=== PATIENT | female | born 1975 | race Caucasian/White ===

== ENCOUNTER 2016-12-05 16:37 | Emergency (ER) | payer BC, OTHER ==
[2016-12-05 16:59] VITALS: BP 144/72
--- NOTE | 2016-12-05 17:22 | UC ---
Skin Complaint HPI - HPI Summary HPI Summary: 41 yo female with multiple complaints cold sores x 2 days gi upset and nausea after getting a shot of toradol fungus right foot x weeks right knee pain- seen by orthopedist today for this complaint - History of Current Complaint Chief Complaint: UCGeneralIllness Time Seen by Provider: 12/05/16 17:01 Stated Complaint: UPSET STOMACH/COLD SORES/RIGHT LEG SWOLLEN Hx Obtained From: Patient Hx Last Menstrual Period: 11/30/16 Onset/Duration: Gradual Onset, Lasting Hours Timing: Constant Onset Severity: Mild Current Severity: Mild Pain Intensity: 3 Pain Scale Used: 0-10 Numeric Location: Other - upper lip Character: Swelling, Redness, Raised, Painful Aggravating: Nothing Alleviating: Nothing Associated Signs & Symptoms: Positive: Nausea - Allergy/Home Medications Allergies/Adverse Reactions: Allergies Allergy/AdvReac Type Severity Reaction Status Date / Time No Known Allergies Allergy Verified 12/05/16 16:59 Home Medications: Home Medications Cholecalciferol TAB* [Vitamin D TAB*] 1,000 unit PO BEDTIME 12/05/16 [History Confirmed 12/05/16] Escitalopram (NF) [Lexapro 10 mg (NF)] 10 mg PO BEDTIME 12/05/16 [History Confirmed 12/05/16] Losartan TAB* [Cozaar TAB*] 25 mg PO BEDTIME 12/05/16 [History Confirmed ] Review of Systems Constitutional: Negative Skin: Rash Eyes: Negative ENT: Negative Respiratory: Negative Cardiovascular: Negative Gastrointestinal: Abdominal Pain - with food, Nausea Genitourinary: Negative Motor: Negative Neurovascular: Negative Musculoskeletal: Negative Neurological: Negative Psychological: Negative All Other Systems Reviewed And Are Negative: Yes PMH/Surg Hx/FS Hx/Imm Hx Previously Healthy: Yes Cardiovascular History: Hypertension - Surgical History Surgical History: Yes Surgery Procedure, Year, and Place: 2 C-SECT. L KNEE SX. KIDNEY STENT/ NEPHROSTOMY TUBE. CHOLECYSTECTOMY. hernia - Family History Known Family History: Positive: None, Hypertension - Social History Alcohol Use: Rare Substance Use Type: None Smoking Status (MU): Never Smoked Tobacco Physical Exam Triage Information Reviewed: Yes Appearance: Well-Appearing, No Pain Distress, Well-Nourished Vital Signs: Initial Vital Signs Temp 98.4 F 12/05/16 16:49 Pulse 75 12/05/16 16:49 Resp 18 12/05/16 16:49 BP 144/72 12/05/16 16:49 Pulse Ox 98 12/05/16 16:49 Vital Signs Reviewed: Yes Eyes: Positive: Conjunctiva Clear ENT: Positive: Hearing grossly normal, TMs normal, Other:. Negative: Nasal congestion, Tonsillar exudate, Trismus, Muffled/hoarse voice Dental: Negative: Gross Decay/Caries @, Dental Fracture @, Abscess @ Neck: Positive: Supple, Nontender, No Lymphadenopathy Respiratory: Positive: Lungs clear, Normal breath sounds, No respiratory distress, No accessory muscle use Cardiovascular: Positive: RRR, No Murmur Abdomen Description: Positive: Nontender, Soft. Negative: CVA Tenderness (R), CVA Tenderness (L) Musculoskeletal: Positive: ROM Intact, Edema @ - mild right lower extr, tender medial joint line right knee Neurological: Positive: Alert Psychological Exam: Normal Skin Exam: Other - rash c/w herpes labialis tinea pedis right foot Course/Dx - Diagnoses Provider Diagnoses: herpes labialis. tinea pedis. gastritis Discharge - Discharge Plan Condition: Stable Disposition: HOME Prescriptions: Ondansetron TAB* [Zofran 4 MG Tab*] 4 mg PO Q6H PRN #10 tab PRN Reason: Nausea ValACYclovir (*) [Valtrex 1 GM(*)] 2 gm PO BID #4 tab Patient Education Materials: Gastritis (ED), Athlete's Foot (ED) Referrals: Glo Lopez MD [Primary Care Provider] - Additional Instructions: take valtrex for cold sores 2 pills every 12 hours (#4) [place] 30 ml (2 tablespoons) every 2 hours while awake for 2 days zofran for nausea soak right foot in epsom salts twice daily dry and apply lotrimen (otc) do this for 2 weeks
== END 2016-12-05 17:42 | disposition home or self-care (01) ==
LOC: UCCORT 16:37
DX: B00.1 Herpesviral vesicular dermatitis (principal); B35.3 Tinea pedis; K29.70 Gastritis, unspecified, without bleeding
CPT/HCPCS: 99212; G0463

== ENCOUNTER 2018-01-20 16:46 | Emergency (ER) | payer BC, OTHER ==
[2018-01-20 17:23] VITALS: BP 141/66
[2018-01-20] MEDS ORDERED: Tetan/Diph/Pertus SYR(Tdap)* 0.5 ML SYR(BOOSTRIX) use SYR IM ONE (17:32)
--- NOTE | 2018-01-20 17:38 | ED ---
Upper Extremity Pain - HPI Summary HPI Summary: 42 yr old female with the complaint of right hand injury. She hit her right middle finger when taking off a door. She complains of laceration to the back of the right proximal finger over the PIP area. This injury occurred at 1430 today. She does not know her last TD shot. No numbness to finger. - History of Current Complaint Chief Complaint: UCLaceration Stated Complaint: LACERATION RIGHT MIDDLE FINGER Time Seen by Provider: 01/20/18 17:23 Hx Last Menstrual Period: now - Allergies/Home Medications Allergies/Adverse Reactions: Allergies Allergy/AdvReac Type Severity Reaction Status Date / Time No Known Allergies Allergy Verified 12/05/16 16:59 PMH/Surg Hx/FS Hx/Imm Hx Cardiovascular History: Reports: Hx Hypertension - Surgical History Surgery Procedure, Year, and Place: 2 C-SECT; T and A. L KNEE SX; right knee [facility]. KIDNEY STENT/NEPHROSTOMY TUBE. CHOLECYSTECTOMY. hernia Infectious Disease History: No Infectious Disease History: Denies: Traveled Outside the [place] in Last 30 Days - Family History Known Family History: Positive: None, Hypertension - Social History Occupation: Employed Full-time Alcohol Use: Rare Substance Use Type: Reports: None Smoking Status (MU): Never Smoked Tobacco Review of Systems Constitutional: Negative Positive: Other - injury right middle finger All Other Systems Reviewed And Are Negative: Yes Physical Exam Triage Information Reviewed: Yes Vital Signs On Initial Exam: Initial Vitals Temp Pulse Resp BP Pulse Ox 98 F 98 20 141/66 100 01/20/18 17:13 01/20/18 17:13 01/20/18 17:13 01/20/18 17:13 01/20/18 17:13 Vital Signs Reviewed: Yes Appearance: Positive: Well-Appearing, No Pain Distress Skin: Positive: Warm, Skin Color Reflects Adequate Perfusion Head/Face: Positive: Normal Head/Face Inspection Eyes: Positive: Normal, EOMI ENT: Positive: Normal ENT inspection Neck: Positive: Nontender Respiratory/Lung Sounds: Positive: Other - normal effort Cardiovascular: Positive: Pulses are Symmetrical in both Upper and Lower Extremities - cap refill normal. Abdomen Description: Negative: Distended Musculoskeletal: Positive: Strength/ROM Intact, Other - tender over the right PIP area there is a superficial skin flap type laceration over the right 3rd digit PIP. Some mild tenderness. She has intact digital nerve sensation and flexor, extensor strenght. Neurological: Positive: Sensory/Motor Intact, Alert, Oriented to Person Place, Time, CN Intact II-III Psychiatric: Positive: Normal - [place] Coma Scale Best Eye Response: 4 - Spontaneous Best Motor Response: 6 - Obeys Commands Best Verbal Response: 5 - Oriented Coma Scale Total: 15 Procedures - Splinting Right 3rd Digit Location: right middle finger Pre-Made Type: metal Splint: volar - under right middle finger and tony taped to the index finger. Pre-Proc Neuro Vasc Exam: normal Post-Proc Neuro Vasc Exam: normal - Laceration/Wound Repair 1 Location: upper extremity Description: Linear Length, Depth and Shape: 1.5 cm skin flap over the right PIP dorsal middle right finger Betadine Prep?: No Irrigated w/ Saline (ccs): 300 Laceration/Wound Explored: clean Closure: SteriStrips Layer Closure?: No Sterile Dressing Applied?: Yes - badaide. Diagnostics - Vital Signs Vital Signs Temp Pulse Resp BP Pulse Ox 01/20/18 17:13 98 F 98 20 141/66 100 - Laboratory Lab Statement: Any lab studies that have been ordered have been reviewed, and results considered in the medical decision making process. - Radiology right middle finger Xray Interpretation: No Acute Changes Radiology Interpretation Completed By: Radiologist Course/Dx - Course Course Of Treatment: 42 yr old with laceration repair of the right middle finger. DC home. - Diagnoses Provider Diagnoses: Laceration of right middle finger Discharge - Sign-Out/Discharge Documenting (check all that apply): Patient Departure All imaging exams completed and their final reports reviewed: Yes - Discharge Plan Condition: Good Disposition: HOME Patient Education Materials: Finger Laceration (ED) Referrals: Bebe Costa MD [Primary Care Provider] - - Billing Disposition and Condition Condition: GOOD Disposition: Home
--- NOTE | 2018-01-20 17:49 | RAD ---
HISTORY: pain over the PIP COMPARISONS: None VIEWS: 3 , Frontal, lateral, and oblique views of the third digit of the left hand FINDINGS: BONE DENSITY: Normal. BONES: There is no displaced fracture. JOINTS: There is no arthropathy. ALIGNMENT: There is no dislocation. SOFT TISSUES: Unremarkable. OTHER FINDINGS: None. IMPRESSION: NO ACUTE OSSEOUS INJURY. IF SYMPTOMS PERSIST, RECOMMEND REPEAT IMAGING.
== END 2018-01-20 18:20 | disposition home or self-care (01) ==
LOC: UCCORT 16:46
DX: S61.212A Laceration without foreign body of right middle finger without damage to nail, initial encounter (principal); W22.09XA Striking against other stationary object, initial encounter; Y93.9 Activity, unspecified; Y92.9 Unspecified place or not applicable; Z23 Encounter for immunization
CPT/HCPCS: 12001; 73140; 90471; 90715; 99212; G0463

== ENCOUNTER 2018-03-21 14:27 | Emergency (ER) | payer BC, OTHER ==
[2018-03-21 14:56] VITALS: BP 126/77
--- NOTE | 2018-03-21 15:15 | ED ---
Throat Pain/Nasal Congestion - HPI Summary HPI Summary: 43 yr old with several days of sore throat, sinus pressure, post nasal drip, and now left ear pain. Symptoms are moderate. No fever. She has no SOB. - History of Current Complaint Chief Complaint: UCGeneralIllness Time Seen by Provider: 03/21/18 15:05 - Allergies/Home Medications Allergies/Adverse Reactions: Allergies Allergy/AdvReac Type Severity Reaction Status Date / Time No Known Allergies Allergy Verified 03/21/18 14:55 PMH/Surg Hx/FS Hx/Imm Hx Cardiovascular History: Reports: Hx Hypertension - Surgical History Surgery Procedure, Year, and Place: 2 C-SECT; T and A. L KNEE SX; right knee 2017 [facility]. KIDNEY STENT/NEPHROSTOMY TUBE. CHOLECYSTECTOMY. hernia Infectious Disease History: No Infectious Disease History: Denies: Traveled Outside the [place] in Last 30 Days - Family History Known Family History: Positive: None, Hypertension - Social History Occupation: Employed Full-time Alcohol Use: Rare Substance Use Type: Reports: None Smoking Status (MU): Never Smoked Tobacco Review of Systems Constitutional: Negative Positive: Sore Throat, Ear Ache, Nasal Discharge, Other - sinus pressure All Other Systems Reviewed And Are Negative: Yes Physical Exam Triage Information Reviewed: Yes Vital Signs On Initial Exam: Initial Vitals Temp Pulse Resp BP Pulse Ox 98.1 F 63 18 126/77 100 03/21/18 14:51 03/21/18 14:51 03/21/18 14:51 03/21/18 14:51 03/21/18 14:51 Vital Signs Reviewed: Yes Appearance: Positive: Well-Appearing, No Pain Distress Skin: Positive: Warm, Skin Color Reflects Adequate Perfusion Head/Face: Positive: Normal Head/Face Inspection Eyes: Positive: EOMI ENT: Positive: Pharynx normal, TMs normal, Sinus tenderness Neck: Positive: Nontender Respiratory/Lung Sounds: Positive: Clear to Auscultation, Breath Sounds Present Cardiovascular: Positive: RRR. Negative: Murmur Abdomen Description: Positive: Nontender Musculoskeletal: Positive: Strength/ROM Intact Neurological: Positive: Sensory/Motor Intact, Alert, Oriented to Person Place, Time, CN Intact II-III Psychiatric: Positive: Normal - [place] Coma Scale Best Eye Response: 4 - Spontaneous Best Motor Response: 6 - Obeys Commands Best Verbal Response: 5 - Oriented Coma Scale Total: 15 Diagnostics - Vital Signs Vital Signs Temp Pulse Resp BP Pulse Ox 03/21/18 14:51 98.1 F 63 18 126/77 100 - Laboratory Lab Statement: Any lab studies that have been ordered have been reviewed, and results considered in the medical decision making process. EENT Course/Dx - Course Course Of Treatment: 43 yr old with sinusitis. Rx with Biaxin. - Diagnoses Provider Diagnoses: Sinusitis Discharge - Sign-Out/Discharge Documenting (check all that apply): Patient Departure All imaging exams completed and their final reports reviewed: No Studies - Discharge Plan Condition: Good Disposition: HOME Prescriptions: Clarithromycin TAB* [Biaxin 500 MG TAB*] 500 mg PO BID #20 tab Patient Education Materials: Sinusitis (ED) Forms: *Work Release Referrals: Bebe Costa MD [Primary Care Provider] - 2 Days - Billing Disposition and Condition Condition: GOOD Disposition: Home
== END 2018-03-21 15:23 | disposition home or self-care (01) ==
LOC: UCCORT 14:27
DX: J32.9 Chronic sinusitis, unspecified (principal)
CPT/HCPCS: 99212; G0463

== ENCOUNTER 2018-08-24 18:35 | Emergency (ER) | payer BC, OTHER ==
[2018-08-24 18:58] VITALS: BP 150/82
[2018-08-24] MEDS ORDERED: Albuterol/Ipratropium NEB.SOL* Albuterol 2.5 MG/Ipratropium 0.5 MG 3 ML INH ONE (19:04)
[2018-08-24] MEDS ORDERED: predniSONE TAB* 20 MG PO ONE (19:22)
[2018-08-24] MEDS ORDERED: Acetaminophen TAB* 325 MG PO ONE (19:22)
[2018-08-24] MEDS ORDERED: Amoxicillin/Clavulanate TAB* 875 MG PO ONE (19:36)
--- NOTE | 2018-08-24 19:38 | ED ---
Respiratory - HPI Summary HPI Summary: 43 yr old with the complaint of coughing, wheezing, and left ear pain and pressure. The patient states she was eating a sandwich about 3 days ago and swallowed the wrong way and feels she may have aspirated some. She has had frontal sinus pressure and post nasal drip as well as the left ear pain. The patient has had left ear pain and pressure as well. She is not coughing anything up. She rates her symptoms as moderate. - History of Current Complaint Chief Complaint: UCRespiratory Stated Complaint: COUGH, EARS Time Seen by Provider: 08/24/18 18:59 Pain Intensity: 7 - Allergy/Home Medications Allergies/Adverse Reactions: Allergies Allergy/AdvReac Type Severity Reaction Status Date / Time No Known Allergies Allergy Verified 08/24/18 18:49 PMH/Surg Hx/FS Hx/Imm Hx Cardiovascular History: Reports: Hx Hypertension - Surgical History Surgery Procedure, Year, and Place: 2 C-SECT; T and A. L KNEE SX; right knee 2017 [facility]. KIDNEY STENT/NEPHROSTOMY TUBE. CHOLECYSTECTOMY. hernia Infectious Disease History: No Infectious Disease History: Denies: Traveled Outside the [place] in Last 30 Days - Family History Known Family History: Positive: None, Hypertension - Social History Alcohol Use: Rare Substance Use Type: Reports: None Smoking Status (MU): Never Smoked Tobacco Review of Systems Constitutional: Negative Positive: Ear Ache, Nasal Discharge Positive: Cough All Other Systems Reviewed And Are Negative: Yes Physical Exam Triage Information Reviewed: Yes Vital Signs On Initial Exam: Initial Vitals Temp Pulse Resp BP Pulse Ox 98.5 F 79 18 150/82 98 08/24/18 18:50 08/24/18 18:50 08/24/18 18:50 08/24/18 18:50 08/24/18 18:50 Vital Signs Reviewed: Yes Appearance: Positive: Well-Appearing, No Pain Distress Skin: Positive: Warm, Skin Color Reflects Adequate Perfusion Head/Face: Positive: Normal Head/Face Inspection Eyes: Positive: EOMI, CINDY ENT: Positive: Pharynx normal, Nasal congestion, TM red - left red with retraction, Sinus tenderness Neck: Positive: Nontender Respiratory/Lung Sounds: Positive: Wheezes - bilateral wheeze Cardiovascular: Positive: RRR. Negative: Murmur Abdomen Description: Positive: Nontender Musculoskeletal: Positive: Strength/ROM Intact Neurological: Positive: Sensory/Motor Intact, Alert, Oriented to Person Place, Time, CN Intact II-III, Normal Gait, Speech Normal Psychiatric: Positive: Normal - [place] Coma Scale Best Eye Response: 4 - Spontaneous Best Motor Response: 6 - Obeys Commands Best Verbal Response: 5 - Oriented Coma Scale Total: 15 Diagnostics - Vital Signs Vital Signs Temp Pulse Resp BP Pulse Ox 08/24/18 18:50 98.5 F 79 18 150/82 98 - Laboratory Lab Statement: Any lab studies that have been ordered have been reviewed, and results considered in the medical decision making process. - Radiology chest xray pa lat Radiology Interpretation Completed By: ED Physician - NAD Re-Evaluation - Re-Evaluation First Eval Re-Evaluation Time: 19:44 Change: Improved Comment: Lungs are clear with out wheezes after the neb. Disposition - Course Course Of Treatment: 43 yr old female with sinus infection, frontal sinus pressure and tenderness and TM retraction. Her breathing is clear after one neb and she feels better. Will rx with pred, albuterol and augmentin - Diagnoses Provider Diagnoses: Sinusitis, Acute bronchitis, Hypertension Discharge - Sign-Out/Discharge Documenting (check all that apply): Patient Departure All imaging exams completed and their final reports reviewed: No - Discharge Plan Condition: Good Disposition: HOME Prescriptions: Albuterol HFA INHALER* [Ventolin HFA Inhaler*] 1 - 2 puff INH Q6H PRN #1 mdi PRN Reason: Cough Amoxicillin/Clavulanate TAB* [Augmentin TAB 875*] 875 mg PO BID #20 tab predniSONE TAB* [Deltasone 20 MG TAB*] 40 mg PO DAILY #8 tab Patient Education Materials: Sinusitis (ED), Acute Bronchitis (ED), Hypertension (ED) Referrals: Bebe Costa MD [Primary Care Provider] - 2 Days - Billing Disposition and Condition Condition: GOOD Disposition: Home
--- NOTE | 2018-08-25 13:48 | UC ---
- Progress Note Progress Note: Patient Name: JOCELYNE GARNETT Medical Record#: [id number] Ordering Physician: Ish Flores MD Acct.#: [id number] : 1975 Age: 43 Sex: F Location: [facility] Exam Date: 08/24/181903 ADM Status: DEP ER Order Information: CHEST PA & LAT 2 VWS Accession Number: [id number] CPT: 37199 INDICATION: Cough COMPARISON: Most recent comparison chest x-rays dated November 14, 2011 TECHNIQUE: PA and lateral views of the chest were obtained. FINDINGS: The heart and mediastinum are normal in size and contour. The lungs are grossly clear. There is no evidence of large pleural effusion. Visualized bones are normal for the patient's age. There is no radiographic evidence of free air beneath the diaphragm IMPRESSION: No radiographic evidence of acute cardiopulmonary disease. R1NF Preliminary Imaging Read R1NF <Electronically signed by Zack Salazar MD in OV> 08/25/18747 Dictated By: Zack Salazar MD Dictated Date/Time: 08/25/18747 Transcribed Date/Time: 08/25/1847 Copy to: CC:Bebe Costa MD; Ish Flores MD Imaging - [facility] Urgent [facility] [place] [address] [place] [address] ph ([phone]) ph ([phone]) ph ([phone]) This report is only to be considered final once signed by the Provider(s) as displayed in the "<Electronically Signed by >" field (s). Absence of a signature indicates the report is in a draft status and still needs to be finalized. In the event this document was created by someone other than the signing Provider, the individual initiating the document will be listed in the "Entered by:" or "Dictated by:" das. 1 of 2 Course/Dx - Diagnoses Provider Diagnoses: Sinusitis, Acute bronchitis, Hypertension Discharge - Sign-Out/Discharge Documenting (check all that apply): Post-Discharge Follow Up All imaging exams completed and their final reports reviewed: Yes - Discharge Plan Condition: Good Disposition: HOME Prescriptions: Albuterol HFA INHALER* [Ventolin HFA Inhaler*] 1 - 2 puff INH Q6H PRN #1 mdi PRN Reason: Cough Amoxicillin/Clavulanate TAB* [Augmentin TAB 875*] 875 mg PO BID #20 tab predniSONE TAB* [Deltasone 20 MG TAB*] 40 mg PO DAILY #8 tab Patient Education Materials: Sinusitis (ED), Acute Bronchitis (ED), Hypertension (ED) Forms: *Work Release Referrals: Bebe Costa MD [Primary Care Provider] - 2 Days - Billing Disposition and Condition Condition: GOOD Disposition: Home
== END 2018-08-24 19:48 | disposition home or self-care (01) ==
LOC: UCCORT 18:35
DX: J32.9 Chronic sinusitis, unspecified (principal); J20.9 Acute bronchitis, unspecified; I10 Essential (primary) hypertension; H92.02 Otalgia, left ear
CPT/HCPCS: 71046; 99213; A9270-GY; G0463; J7512

== ENCOUNTER 2019-04-21 14:53 | Emergency (ER) | payer BC ==
[2019-04-21 15:05] VITALS: BP 137/85
--- NOTE | 2019-04-21 15:24 | UC ---
Hand/Wrist HPI - HPI Summary HPI Summary: 44 yo with gradual onset of left wrist and hand pain over the past month, with a focus of pain in the base of the thumb. No swelling. She also has onset of paresthesias in digits 3 and 4 at the tips only. No hx of injury. She uses acetaminopen 325mg up to 2x per day. Pain provoked when she uses a pill crusher dry ground mica, which she holds in her left palm. States that this is not a work injury. - History Of Current Complaint Chief Complaint: UCUpperExtremity Stated Complaint: PAIN LEFT HAND Time Seen by Provider: 04/21/19 15:11 Hx Obtained From: Patient Hx Last Menstrual Period: 03/23/19 Onset/Duration: Gradual Onset, Lasting Weeks - 4 Severity Initially: Moderate Severity Currently: Moderate Pain Intensity: 10 Character Of Pain: Aching, Stiffness Aggravating Factor(s): Movement Alleviating Factor(s): OTC Meds Associated Signs And Symptoms: Positive: Numbness/Tingling Related History: Dominant Hand Right - Risk Factors Compartment Syndrome Risk Factors: Pain - Allergies/Home Medications Allergies/Adverse Reactions: Allergies Allergy/AdvReac Type Severity Reaction Status Date / Time No Known Allergies Allergy Verified 04/21/19 15:05 PMH/Surg Hx/FS Hx/Imm Hx - Additional Past Medical History Additional PMH: obesity Cardiovascular History: Hypertension - Surgical History Surgical History: Yes Surgery Procedure, Year, and Place: 2 C-SECT; T and A. L KNEE SX; right knee 2017 [facility]. KIDNEY STENT/NEPHROSTOMY TUBE. CHOLECYSTECTOMY. hernia - Family History Known Family History: Positive: Hypertension - Social History Occupation: Employed Full-time Lives: With Family Alcohol Use: Rare Substance Use Type: None Smoking Status (MU): Never Smoked Tobacco - Immunization History Most Recent Tetanus Shot: unknown Review of Systems All Other Systems Reviewed And Are Negative: Yes Constitutional: Positive: Negative Skin: Positive: Rash - erythematous patch left wrist due to irritation from her watch. Eyes: Positive: Negative ENT: Positive: Negative Respiratory: Positive: Negative Cardiovascular: Positive: Other - hypertension controlled. Gastrointestinal: Positive: Negative Genitourinary: Positive: Negative Motor: Positive: Negative Neurovascular: Positive: Negative Musculoskeletal: Positive: Arthralgia Physical Exam Triage Information Reviewed: Yes Appearance: Well-Appearing, Pain Distress - mild to moderate, Obese Vital Signs: Initial Vital Signs Temp 97.6 F 04/21/19 15:01 Pulse 75 04/21/19 15:01 Resp 16 04/21/19 15:01 BP 137/85 04/21/19 15:01 Pulse Ox 100 04/21/19 15:01 ENT: Positive: Normal ENT inspection Neck exam: Normal Respiratory: Positive: Lungs clear, Normal breath sounds, No respiratory distress Cardiovascular: Positive: RRR, No Murmur Musculoskeletal Exam: Other - No erythema or swelling. Musculoskeletal: Positive: ROM Limited @ - left wrist with pain with flexion and extension at the joint. Neurological Exam: Other - left wrist with negative Tinel's and Phalen's Psychological Exam: Normal Diagnostics - Radiology No standard instances Radiology Interpretation Completed By: Radiologist - Patient Name: JOCELYNE GARNETT Medical Record#: [id number] Ordering Physician: Emmanuelle Díaz MD Acct.#: [id number] : Age: 44 Sex: F Location: [facility] Exam Date: 04/21/191525 ADM Status: REG ER Order Information: HAND - LEFT MINIMUM 3 VIEWS Accession Number: [id number] CPT: 25337 INDICATION: Left hand pain. TECHNIQUE: 4 views of the left hand were obtained. FINDINGS: The soft tissues are unremarkable. The bone mineralization is within normal limits. No fracture is identified. Anatomic alignment is maintained. The joint spaces are grossly preserved. IMPRESSION: NO FRACTURE IS IDENTIFIED. <Electronically signed by Jere Mejía MD in OV> 1600 Dictated By: Jere Mejía MD Dictated Date/Time: 04/21/19 1557 Transcribed Date/Time: 04/21/191556 Copy to: CC:Emmanuelle Díaz MD; Bebe Costa MD Imaging - [facility] Imaging - [facility] [address] [place] [address] ph ([phone]) ph [phone]) ) This report is only to be considered final once signed by the Provider(s) as displayed in the "<Electronically Signed by >" field (s). Absence of a signature indicates the report is in a draft status and still needs to be finalized. In the event this document was created by someone other than the signing Provider, the individual initiating the document will be listed in the "Entered by:" or "Dictated by:" das. 1 of 1 Hand/Wrist Course/Dx - Course Course Of Treatment: for overuse tendonitis, will use splint and continue acetaminophen, occasional ibuprofen. Follow up primary care to re-evaluate and decide if nerve conduction testing is needed. - Differential Dx/Diagnosis Differential Diagnosis/HQI/PQRI: Tendonitis, Tenosynovitis, Other - osteoarthritis Provider Diagnosis: Left hand tendonitis Discharge ED - Sign-Out/Discharge Documenting (check all that apply): Patient Departure All imaging exams completed and their final reports reviewed: Yes - Discharge Plan Condition: Stable Disposition: HOME Patient Education Materials: Tendinitis (ED) Referrals: Bebe Costa MD [Primary Care Provider] - Additional Instructions: Use the brace during the day, taking it off as needed as we discussed. continue use of acetaminophen and you could use up to 3000mg per day. You can use occasional ibuprofen 600mg for relief of pain, but avoid regular use due to your history of high blood pressure. Follow up with your primary care in 2 weeks; if the finger numbness is persisting, you might need to have nerve conduction testing for further evaluation. - Billing Disposition and Condition Condition: STABLE Disposition: Home
== END 2019-04-21 16:35 | disposition home or self-care (01) ==
LOC: UCCORT 14:53
DX: M77.9 Enthesopathy, unspecified (principal); E66.9 Obesity, unspecified; I10 Essential (primary) hypertension
CPT/HCPCS: 99212; G0463